=== PATIENT | female | born 1945 | race Caucasian/White ===

== ENCOUNTER 2020-11-22 08:05 | Day surgery (SDC) | payer MEDICARE ==
[2020-11-22] VITALS (9 sets, daily range): BP systolic 108–132; BP diastolic 46–66
[~2020-11-22] VITALS: Ht 162.6 cm; Wt 102.0 kg
[~2020-11-22 08:05] MED LIST: AMLO10TA13 PO; ASPI-1071 PO; ATOR40TA PO; CARV3.122 PO; CINN500C2 PO; CYAN500T71 PO; GLUC-115 PO; KRIL1CAP19 PO; LACT1CAP26 PO; LEVO75TA PO; LOSA100T57 PO; LUBI8CAP PO; MAGN500C16 PO; METO10TA3 PO; MULT-1085 PO; NITR0.4T51 SL; OCUVITE PO; OMEP40CA21 PO; PSYL1040 PO; TURM500C7 PO
[2020-11-22] MEDS ORDERED: normal saline 1000ml 1,000 ML IV SCH (08:35)
[2020-11-22] MEDS ORDERED: MIDAZolam 1mg/ml 10ml vial IV ONE (08:35)
[2020-11-22] MEDS ORDERED: fentaNYL/PF 50MCG/1 ML 2ML syringe IV ONE (08:35)
[2020-11-22] MEDS ORDERED: LEVO50CA4 PEG (09:38)
[2020-11-22] MEDS ORDERED: VENL150C58 PO (09:39)
[2020-11-22] MEDS ORDERED: POTASSIUM CHLORIDE (09:39)
[2020-11-22] MEDS ORDERED: DILT-35 PO (09:39)
[2020-11-22] MEDS ORDERED: METO25TA6 PO (09:39)
[2020-11-22] MEDS ORDERED: APIX5TAB3 PO (09:39)
[2020-11-22] MEDS ORDERED: LAN0.125T PO (09:39)
[2020-11-22] MEDS ORDERED: SPIR25TA PO (09:39)
[2020-11-22] MEDS ORDERED: CHLO25TA10 PO (09:39)
[2020-11-22] MEDS ORDERED: AMIO200T61 PO (09:39)
[2020-11-22] MEDS ORDERED: VITAMIN D (09:39)
[2020-11-22 09:56] LABS: BASOPHILS # (AUTO) 0.1 X10'3 (0-0.2); EOSINOPHILS # (AUTO) 0.3 X10'3 (0-0.9); EOSINOPHILS % (AUTO) 3.9 % (0-6); HEMOGLOBIN 12.4 g/dl (12.0-16.0); LYMPHOCYTES % (AUTO) 13.9 % (21-51); MEAN CORPUSCULAR HEMOGLOBIN 31.5 PG (27.0-31.0); MEAN CORPUSCULAR HGB CONC 33.3 g/dL (33.0-36.5); MEAN CORPUSCULAR VOLUME 94.5 FL (78-98); MONOCYTES # (AUTO) 0.7 X10'3 (0-0.9); MONOCYTES % (AUTO) 9.8 % (2-12); NEUTROPHILS # (AUTO) 5.1 X10'3 (1.8-7.7); NEUTROPHILS % (AUTO) 71.4 % (42-75); PLATELET COUNT 275 X10'3 (140-440); RED BLOOD COUNT 3.92 X10'6 (4.20-5.60); RED CELL DISTRIBUTION WIDTH 14.2 % (11.5-14.5); WHITE BLOOD COUNT 7.1 X10'3 (4.5-11.0)
[2020-11-22 10:07] LABS: ALBUMIN 3.9 G/DL (3.4-5.0); ANION GAP 11 (8-16); BLOOD UREA NITROGEN 29 MG/DL (7-18); BUN/CREATININE RATIO 19.6 (6.6-38.0); CALCIUM 9.1 MG/DL (8.5-10.1); CHLORIDE 105 MMOL/L (99-107); CREATININE 1.48 MG/DL (0.40-0.90); GLUCOSE 114 MG/DL (70-104); MAGNESIUM 1.7 MG/DL (1.5-2.4); POTASSIUM 4.9 MMOL/L (3.5-5.1); SODIUM 142 MMOL/L (135-145); TOTAL CARBON DIOXIDE 25.9 MMOL/L (24-32); eGFR 34 ML/MIN
[2020-11-22] MEDS ORDERED: ROSU40TA PO (10:46)
== END 2020-11-22 13:00 | disposition home or self-care (01) ==
LOC: SSTAY O 08:05
PROVIDERS: ATTEND Internal Medicine Cardiovascular Disease
DX: I48.4 Atypical atrial flutter (principal); G47.30 Sleep apnea, unspecified; Z88.2 Allergy status to sulfonamides; Z88.5 Allergy status to narcotic agent; Z79.899 Other long term (current) drug therapy
CPT/HCPCS: 36415; 80048; 83735; 85025; 85610; 92960; 93005; J2250; J3010; J7030